=== PATIENT | female | born 1970 | race Caucasian/White ===

== ENCOUNTER 2025-04-23 13:32 | Observation (INO) | payer OTHER, SELFPAY ==
--- NOTE | ~2025-04-23 | XR_ITS ---
EXAMINATION: XR WRIST 3 OR MORE VIEWS LEFT HISTORY: swelling, cat bite COMPARISON: There are no prior studies available for comparison. FINDINGS: Four views of the left wrist including a scaphoid view are submitted. Osseous mineralization is normal. There is no fracture or dislocation. The joint spaces are preserved. There is diffuse soft tissue swelling. XR/XR wrist LT min 3V IMPRESSION: Diffuse soft tissue side. No osseous abnormality is identified. Electronically signed by: Oscar Rodríguez MD 04/23/2025 02:29 PM EDT
--- NOTE | 2025-04-23 14:02 | ED.GENADULT ---
HPI - General Adult General Chief complaint: Animal Bite Stated complaint: infection Time Seen by Provider: 04/23/25 14:51 Source: patient Mode of arrival: ambulatory Limitations: no limitations History of Present Illness ED Provider: Giselle Rodrigues PA-C HPI narrative: Patient is a 54 year old assigned female at with no reported medical history presenting to the emergency department today with right forearm and hand pain. Patient states that on 04/21/2025 she was bit by her daughters cat, went to the urgent care and started on antibiotics (Augmentin) which she has been taking and her swelling and pain has increased. Patient denies any dizziness, lightheadedness, abdominal pain, nausea, vomiting, fever, chills, blurry vision, double vision, loss of vision, chest pain, difficulty breathing, shortness of breath, back pain, night sweats, pain with urination, increased urinary frequency, increased urinary urgency, blood in her urine or stool, syncope or a near syncopal episode, recent trauma or falls, bowel incontinence, bladder incontinence, or any other complaints at this time. Relieving factors: none Exacerbating factors: none Associated symptoms: denies other symptoms Treatments prior to arrival: other (Augmentin - taking as directed) Related Data Home Medications ?Medication ?Instructions ?Recorded ?Confirmed amoxicillin 875 mg-potassium 1 tab PO BID 04/23/25 clavulanate 125 mg tablet fluconazole 150 mg tablet 150 mg PO Q3D 04/23/25 levothyroxine 100 mcg tablet 100 mcg PO DAILY@0600 04/23/25 (Synthroid) Allergies Allergy/AdvReac Type Severity Reaction Status Date / Time bupropion (From Wellbutrin) Allergy Intermediate Hives Verified 04/23/25 14:05 Review of Systems Constitutional: Constitutional: Reports no additional constitutional complaints, Denies chills, Denies fever(s) and Denies night sweats Eyes: Eyes: Reports no additional eye complaints, Denies blurry vision, Denies change in vision, Denies diplopia, Denies eye discharge, Denies loss of vision and Denies eye pain ENT: Denies dizziness Cardiovascular: Cardiovascular: Reports no additional cardiovascular complaints, Denies chest pain, Denies lightheadedness, Denies Loss of Consciousness and Denies dyspnea Respiratory: Respiratory: Reports no additional respiratory complaints and Denies dyspnea Gastrointestinal: Gastrointestinal: Reports no additional gastrointestinal complaints, Denies abdominal pain, Denies melena, Denies hematochezia, Denies change in bowel habits and Denies change in stool character Genitourinary: Genitourinary: Denies hematuria, Denies urinary frequency, Denies dysuria, Denies urinary incontinence, Denies urinary hesitancy and Denies urinary urgency Musculoskeletal: Musculoskeletal: Reports no additional musculoskeletal complaints, Denies numbness and Denies tingling Comments: right hand and forearm pain Neurologic: Denies dizziness, Denies loss of vision, Denies numbness and Denies tingling Psychiatric: Psychiatric: Reports no additional psychiatric complaints Endocrine: Endocrine: Reports no additional endocrine complaints Hematologic/Lymphatic: Hematologic/Lymphatic: Reports no additional hematologic/lymphatic complaints Allergic/Immunologic: Allergic/Immunologic: Reports no additional allergic/immunologic complaints PMFSH Past Medical History Attestation statement: The following information was validated with the patient. Source: old records reviewed and nursing notes reviewed Social History Social History Smoked in Last 30 Days: Yes Use of substances other than those prescribed or required for medical reasons: No Advance Directives: No Advance Directives Information Provided: Yes Do you have a plan to hurt others: No Plan Physical Exam ED Vital Signs: Vital Signs - 24 hr 04/23/25 14:03 Temperature 98.3 F Pulse Rate 69 Respiratory Rate 18 Blood Pressure 130/87 Pulse Oximetry 98 Oxygen Delivery Method Room Air BMI result Body Mass Index 21.1 Const General: cooperative, no acute distress, alert and awake Nutritional Appearance: well nourished Orientation/consciousness: patient oriented x3 HENMT Head: Yes normal to inspection and Yes atraumatic Ears: hearing grossly normal bilaterally and external ears normal General nose exam: Normal external nose present, no nasal discharge noted and no epistaxis Face and sinus: Yes normal facial exam, No abrasion and No laceration Mouth: Normal oral and palatal mucosa present, no drooling and no muffled voice Eyes General: appearance normal, both eyes and all related structures Periorbital: periorbital findings normal Eyelids: Yes eyelids normal Conjunctivae: conjunctivae normal Pupils: Equal, round and reactive pupils present EOM: EOMs intact bilaterally Neck Neck: Yes normal visual inspection, Yes full ROM and Yes no lymphadenopathy Resp Effort & Inspection: normal respiratory effort and able to speak in complete sentences Neuro General: patient oriented x3, moves all extremities and CN's II-XI intact bilaterally Cranial nerves: Yes Equal, round and reactive pupils present Cognition (Neuro): normal cognition Extrem Other: patient's ring has been removed s/p picture General: Yes full ROM and Yes capillary refill normal Psych Appearance: grossly normal Mental Status: mental status grossly normal Affect: normal affect Attitude: cooperative Thought process: Normal thought process present Thought content: Normal thought content present Insight: Good insight present (Psych) Course Course Course Narrative: This is an RME: Additional HPI, ROS, PE not included below will be deferred to primary provider. RME assessment and note performed by: Kristin Alonso PA-C This is a 54-oqpx-kch-female, with a hx of hypothyroidism, who presents to the ER with a complaint of left wrist swelling. Reports sunday night she was bit by her daughter's cat - seen at urgent care yesterday and was placed on augmentin. She has taken 3 doses of this and her wrist is more swollen, red. Plan: Labs, further ER eval needed Medications Administered Discontinued Medications Generic Name Dose Route Start Last Admin Trade Name Freq PRN Reason Stop Dose Admin Piperacillin Sod/Tazobactam 50 mls @ 100 mls/hr 04/23/25 15:23 04/23/25 16:36 Sod 3.375 gm/ Sodium Chloride IV 04/23/25 15:52 100 mls/hr ONCE ONE Administration Medical Decision Making Medical Decision Making MDM Narrative: Patient is a 54 year old assigned female at with no reported medical history presenting to the emergency department today with right forearm and hand pain. Patient's physical exam was as noted in the physical exam portion of this note. Patient's blood work was unremarkable. Patient's right wrist x-ray showed no acute process. I spoke to the orthopedic team who recommended admission with continued IV antibiotics. I spoke to the hospitalist team who agreed to admission. Patient's clinical presentation is most consistent with right wrist / hand / forearm cellulitis and not sepsis (@1630). I explained my physical exam findings as well as all test results to the patient. I answered all questions asked by the patient. Patient verbalized agreement and understanding with this treatment plan and admission. Differential Diagnosis Differential Diagnoses: The differential diagnosis associated with the presentation includes Cellulitis Cat bite Admission/Observation Consideration of admission/observation: Escalation of care including admission/observation considered Patient admitted as noted in the MDM Rationale portion of this note. Consult Healthcare Provider Management of the patient was discussed with: Hospitalist (agreed to admission as noted in the MDM Rationale portion of this note. ) and Fitter/Welder (spoke with the ortho team as noted in the MDM Rationale portion of this note. ) Lab Data [facility] Lab Attestation statement: I reviewed the patient's lab results. My interpretation of these results are in the MDM Rationale portion of this note. 04/23/25 14:48 04/23/25 14:48 Labs: Lab Results 04/23/25 Range/Units 14:48 WBC 8.2 (4.8-10.8) X10*3/uL RBC 4.58 (4.20-5.50) X10*6/uL Hgb 14.7 (12.0-16.0) g/dl Hct 43.2 (37.0-47.0) % MCV 94.3 (80.0-98.0) fL MCH 32.1 (27.0-33.0) pg MCHC 34.0 (31.0-35.0) g/dl RDW 13.2 (11.0-16.0) % Plt Count 313 (160-400) X10*3/uL MPV 9.2 L (9.4-12.3) fL Immature Gran % (Auto) 0.2 (0.0-0.4) % Neut % (Auto) 76.6 H (45-73) % Lymph % (Auto) 12.8 L (20-40) % [place] % (Auto) 7.3 (2-11) % Eos % (Auto) 2.2 (0-4) % Baso % (Auto) 0.9 (0-2) % Lymph # (Auto) 1.1 L (1.2-4.9) X10*3/uL [place] # (Auto) 0.6 (0.1-1.2) X10*3/uL Eos # (Auto) 0.2 (0.0-0.4) X10*3/uL Baso # (Auto) 0.1 (0.0-0.2) X10*3/uL Abs Immat Gran (auto) 0.02 (0.00-0.03) X10*3/uL Absolute Neuts (auto) 6.3 (2.0-8.3) x10*3/uL Absolute Nucleated RBC 0.000 (0.0-0.012) X10*3/uL Nucleated RBC % (auto) 0.0 (0.0-0.2) /100WBC Sodium 140 (135-145) mmol/L Potassium 3.9 (3.3-5.1) mmol/L Chloride 106 (96-108) mmol/L Carbon Dioxide 27 (22-29) mmol/L Anion Gap 11 L (12-20) BUN 19 H (9-16) mg/dL Creatinine 0.73 (0.5-1.4) mg/dL Estim Creat Clear Calc 77.4 Estimated GFR > 60 Random Glucose 96 (60-115) mg/dL Lactic Acid 0.9 (0.5-2.0) mmol/L Calcium 9.7 (8.4-10.2) mg/dL Total Bilirubin 0.5 (0.0-1.0) mg/dL Direct Bilirubin 0.2 (0.0-0.5) mg/dL AST 22 (5-31) U/L ALT 13 (0-31) U/L Alkaline Phosphatase 88 (39-117) U/L Total Protein 6.4 L (6.5-8.0) g/dL Albumin 4.1 (3.5-5.0) g/dL Independent Interpretation I performed an independent interpretation of an: Plain X-Ray Interpretation: My interpretation is in agreement with the radiologist's impression of this imaging study. EXAMINATION: XR WRIST 3 OR MORE VIEWS LEFT HISTORY: swelling, cat bite COMPARISON: There are no prior studies available for comparison. FINDINGS: Four views of the left wrist including a scaphoid view are submitted. Osseous mineralization is normal. There is no fracture or dislocation. The joint spaces are preserved. There is diffuse soft tissue swelling. XR/XR wrist LT min 3V IMPRESSION: Diffuse soft tissue side. No osseous abnormality is identified. Electronically signed by: Oscar Rodríguez MD 04/23/2025 02:29 PM EDT Dictated By: Oscar Rodríguez MD Signed By: Electronically signed by Oscar Rodríguez MD 04/23/25 1429 Radiology Impression Discussion of test interpretation with radiology: I have reviewed the radiologist's reading. Critical Care Time Critical Care Time Critical Care Time: Yes Total Critical Care Time: 38 Attestation: I spent 38 minutes of Critical Care Time with this patient. This does not include time spent on separately reported billable procedures. Discharge Plan Discharge Clinical Impression: Cat bite, Acute cellulitis Patient Disposition: Admitted As Inpatient
[2025-04-23 14:03] VITALS: BP 130/87; PULSE 69; RESP 18; TEMP 36.8; O2SAT 98; BMI 21.1
[2025-04-23 14:59] LABS: MANUAL DIFF FLAG NO
--- OUTSIDE RECORDS SUMMARY | 2025-04-23 15:01 | XMS_ITS | Encounter Summary ---
Author Organization Formerly [facility] Address [address] [place] [address] [place] [phone] Phone Care Team Providers Care Port Drier Name Role Phone ArjunJosé Luis vu Primary Care Provider + Encounter Details Date Type Department Care Team (Late st Contact Info) Description 04/24/2016 Ancillary Orders Hakeem Coates [employer] [address] [facility], [address] [place] [address] Shahana Noonan MD [address] [place] [address] [email or web address] Screening (Primary Dx) Social History Tobacco Use Types Packs/Day Years Used Date Smoking Tobacco: Never Comments:Smoking History Pac ks/day: <=0.5 Comments Unknown Sex and Gender Information Value Date Recorded Sex Assigned at Not on file Legal Sex Female 5:49 PM EST Gender Identity Not on file Sexual Orientation Not on file documented as of this encounter Plan of Treatment Not on file documented as of this encounter Results * BI MAMMOGRAM SCREENING WITH TOMOSYNTHESIS WITH CAD (BILATERAL) (05/11/2016 10:57 AM EDT) Anatomical Region Laterality Modality Breast Left, Breast Right, Breast Bilateral Bila teral Mammography Impressions 05/12/2016 7:49 AM EDT IMPRESSION: No mammographic evidence for malignancy. The patient will receive her results by telephone and/or USPS. Result Code: BI-RADS 2 Benign Findings. Recommendations: Mammography Screening Recommendation Due Date: 12 Months Narrative 05/12/2016 7:49 AM EDT HISTORY: The patient presents for annual mammography. FINDINGS: Comparison is made with previous examinations spanning 01/16/2008-06/05/2013. The examination is performed with digital mammography and computer aided detection. 2-D and 3-D images (tomosynthesis) of both breasts were obtained in the CC and MLO positions. The breast tissue is heterogeneously dense, an appearance which lowers the sensitivity of mammography. There are no suspicious masses, suspicious calcifications, areas of suspicious distortion or other signs of malignancy detected. No significant changes are identified. Benign-appearing calcifications are noted in both breasts with no significant changes detected. Shahana Noonan MD IMG MG EXAMS Final Result documented in this encounter Visit Diagnoses Diagnosis Screening- Primary Screening for unspecified condition Screening Screening for unspecified condition documented in this encounter Care Teams Port Drier Relationship Specialty Start Date End Date José Luis Hinds DO [address] [place] [id number] PCP - General 02/04/15 documented as of this encounter Additional Source Comments The information contained in this document represents components of the legal health record. It is not the complete legal health record.[facility]
[2025-04-23 15:04] LABS: Hematocrit 43.2 % (37.0-47.0); Hemoglobin 14.7 g/dl (12.0-16.0); Imm Gran Abs Auto 0.02 X10*3/uL (0.00-0.03); Imm Gran Pct Auto 0.2 % (0.0-0.4); Lymphocytes Absolute Auto 1.1 X10*3/uL (1.2-4.9); Mean Corpuscular HGB Conc 34.0 g/dl (31.0-35.0); Mean Corpuscular Hemoglobin 32.1 pg (27.0-33.0); Mean Corpuscular Volume 94.3 fL (80.0-98.0); NRBC Abs Auto 0.000 X10*3/uL (0.0-0.012); NRBC Pct Auto 0.0 /100WBC (0.0-0.2); Platelet Count 313 X10*3/uL (160-400); Red Blood Count 4.58 X10*6/uL (4.20-5.50); White Blood Count 8.2 X10*3/uL (4.8-10.8)
--- NOTE | 2025-04-23 15:08 | PC.NURSE ---
This is a 53-dcvz-his-female, with a hx of hypothyroidism, who presents to the ER with a complaint of left wrist swelling. Reports sunday night she was bit by her daughter's cat - seen at urgent care yesterday and was placed on augmentin. She has taken 3 doses of this and her wrist is more swollen, red. Patient alert and oriented. Lungs clear bilat. Respirations even and non-labored. Abdomen flat, soft, non-tender with positive bowel sounds. Left forearm red and swollen, a good pulse and csm. Positive pedal pulses with no edema.
[2025-04-23 15:20] LABS: Alanine Aminotransferase 13 U/L (0-31); Albumin Level 4.1 g/dL (3.5-5.0); Alkaline Phosphatase 88 U/L (39-117); Anion Gap 11 (12-20); Aspartate Amino Transferase 22 U/L (5-31); Blood Urea Nitrogen 19 mg/dL (9-16); Calcium 9.7 mg/dL (8.4-10.2); Carbon Dioxide 27 mmol/L (22-29); Chloride 106 mmol/L (96-108); Creatinine Clr Calc Pharmacy 77.4; Estimated Glomerular Filt Rate > 60; Potassium 3.9 mmol/L (3.3-5.1); Sodium 140 mmol/L (135-145); Total Protein 6.4 g/dL (6.5-8.0)
--- NOTE | 2025-04-23 16:07 | PM.IMHP ---
History of Present Illness Date of Service: 04/23/25 Attending physician on admission: [facility] Chief Complaint: sandra bite /cellulitis 54 y/o f no reported medical history presenting to the emergency department today with right forearm and hand pain. Patient states that on 04/21/2025 she was bit by her daughters cat, went to the urgent care and started on antibiotics (Augmentin) which she has been taking and her swelling and pain has increased. Denies any new complaint of chest pain or shortness of breath or abdominal pain or fever or chills or nausea or vomiting or cough or weakness or numbness. Lab reviewed: CBC BMP seems fine, wrist x-ray shows diffuse soft tissue side. Patient received IV antibiotics in emergency room and admission was requested for IV antibiotics, also seen by ortho for possible need of I and D if patient does not improve. Review of Systems Review of Systems: As above. Yes all other systems are reviewed and are negative PMFSH Social History Smoked in Last 30 Days: Yes Use of substances other than those prescribed or required for medical reasons: No Advance Directives: No Advance Directives Information Provided: Yes Do you have a plan to hurt others: No Plan Meds Allergies Allergy/AdvReac Type Severity Reaction Status Date / Time bupropion (From Wellbutrin) Allergy Intermediate Hives Verified 04/23/25 14:05 Active Medications: Current Medications Acetaminophen (Acetaminophen 325 Mg Tablet) 650 mg PO Q6H PRN PRN Reason: Pain, Mild 1-3,fever,headache Calcium Carbonate (Calcium Carbonate 750 Mg Tab.Chew) 750 mg PO Q4H PRN PRN Reason: Heartburn Vancomycin HCl 1,500 mg/ (Sodium Chloride) 500 mls @ 333.333 mls/hr IV ONCE ONE Stop: 04/23/25 17:29 Magnesium Hydroxide (Milk Of Magnesia 30 Ml Oral.Susp) 30 ml PO DAILY PRN PRN Reason: Constipation Melatonin (Melatonin 3 Mg Tablet) 6 mg PO BEDTIME PRN PRN Reason: Insomnia Sodium Chloride (0.9 % Sodium Chloride Flush 3 Ml Syringe) 3 ml IVFLUSH QSHIFT [facility] Home Medications ?Medication ?Instructions ?Recorded ?Confirmed ?Last Taken ?Type amoxicillin 875 mg-potassium 1 tab PO BID 04/23/25 04/23/25 04/23/25 History clavulanate 125 mg tablet dextroamphetamine-amphetamine 20 20 mg PO DAILY@1400 PRN attention 04/23/25 04/23/25 Unknown History mg tablet dextroamphetamine-amphetamine ER 30 mg PO DAILY 04/23/25 04/23/25 04/21/25 History 30 mg 24hr capsule,extend release levothyroxine 100 mcg tablet 100 mcg PO DAILY@0600 04/23/25 04/23/25 04/21/25 History (Synthroid) multivitamin 1 tab PO DAILY 04/23/25 04/23/25 04/21/25 History Physical Exam Vital Signs and Narrative: Vital Signs: Last Vital Signs Temp 98.3 F 04/23/25 14:03 Pulse 69 04/23/25 14:03 Resp 18 04/23/25 14:03 BP 130/87 04/23/25 14:03 Pulse Ox 98 04/23/25 14:03 O2 Del Method Room Air 04/23/25 14:03 BMI result Body Mass Index 21.1 Appearance: Alert.? Oriented X3. Eyes: Pupils equal, round and reactive to light.? Sclera nonicteric.? ENT: Pharynx normal.? Moist mucous membranes. cvs: rrr, [id number]. res: clear to auscultation ,no rhonchii or wheezing abd: no rebound or guarding ,nt, bs present. ext pulses present , no cyanosis . has bite angela on forearm-please see h&P . neuro: axo3 , nonfocal. Results Labs 04/24/25 05:50 04/24/25 05:50 Labs: Laboratory Results - last 24 hr 04/23/25 14:48 MCV 94.3 MCH 32.1 MCHC 34.0 RDW 13.2 Plt Count 313 MPV 9.2 L Immature Gran % (Auto) 0.2 Neut % (Auto) 76.6 H Lymph % (Auto) 12.8 L [place] % (Auto) 7.3 Eos % (Auto) 2.2 Baso % (Auto) 0.9 Lymph # (Auto) 1.1 L [place] # (Auto) 0.6 Eos # (Auto) 0.2 Baso # (Auto) 0.1 Abs Immat Gran (auto) 0.02 Absolute Neuts (auto) 6.3 Absolute Nucleated RBC 0.000 Nucleated RBC % (auto) 0.0 Anion Gap 11 L Estim Creat Clear Calc 77.4 Estimated GFR > 60 Random Glucose 96 Lactic Acid 0.9 Calcium 9.7 Total Bilirubin 0.5 Direct Bilirubin 0.2 AST 22 ALT 13 Alkaline Phosphatase 88 Total Protein 6.4 L Albumin 4.1 Imaging Radiologist's Impressions: Impressions Wrist X-Ray 04/23/25 13:23 IMPRESSION: Diffuse soft tissue side. No osseous abnormality is identified. Assessment and Plan (1) Acute cellulitis: Status: Acute Plan 54 y/o f no reported medical history presenting to the emergency department today with right forearm and hand pain. Patient states that on 04/21/2025 she was bit by her daughters cat, went to the urgent care and started on antibiotics (Augmentin) which she has been taking and her swelling and pain has increased. Right arm cellulitis : After biting from the cat As per the ED physician patient is immunization up to date. No leukocytosis or fever . xray arm:Diffuse soft tissue side. No osseous abnormality is identified. Started on IV antibiotics, ortho consult Patient also requested ibuprofen for pain, as well as fluconazole because she gets yeast infection with antibiotics as per with the patient. DVT prophylaxis: Low risk, Ambulation. Patient will benefit from at least 2 midnight stay-right arm cellulitis: continue IV antibiotics, need of ortho input-possible need i&D. `` Quality Stroke Does the patient have a stroke diagnosis?: No VTE Prior VTE?: No VTE Risk Level:: Medical - moderate - high VTE Device Contraindication: N/A - Device Ordered VTE Drug Contraindication: N/A - Med Ordered
--- NOTE | 2025-04-23 16:15 | PM.CNOR ---
History of Present Illness [facility] Consult date: 04/23/25 Chief complaint: Cellulitis Narrative: Patient is a 54-year-old female who presents to the hospital for worsening redness and swelling after a cat bite of the right forearm Patient was bit by her daughter's cat on 04/21/2025 Patient was placed on Augmentin at that time, however redness and swelling have worsened Patient reports some minor discharge from 2 of the 4 puncture sites Patient states that pain is worst in the 2 most ulnar puncture sites There is some surrounding edema and erythema Review of Systems Review of Systems: Yes all other systems are reviewed and are negative [facility] Social History Social History Smoked in Last 30 Days: Yes Use of substances other than those prescribed or required for medical reasons: No Advance Directives: No Advance Directives Information Provided: Yes Do you have a plan to hurt others: No Plan Meds Allergies Allergy/AdvReac Type Severity Reaction Status Date / Time bupropion (From Wellbutrin) Allergy Intermediate Hives Verified 04/23/25 14:05 Active Medications: Current Medications Acetaminophen (Acetaminophen 325 Mg Tablet) 650 mg PO Q6H PRN PRN Reason: Pain, Mild 1-3,fever,headache Calcium Carbonate (Calcium Carbonate 750 Mg Tab.Chew) 750 mg PO Q4H PRN PRN Reason: Heartburn Vancomycin HCl 1,500 mg/ (Sodium Chloride) 500 mls @ 333.333 mls/hr IV ONCE ONE Stop: 04/23/25 17:29 Magnesium Hydroxide (Milk Of Magnesia 30 Ml Oral.Susp) 30 ml PO DAILY PRN PRN Reason: Constipation Melatonin (Melatonin 3 Mg Tablet) 6 mg PO BEDTIME PRN PRN Reason: Insomnia Sodium Chloride (0.9 % Sodium Chloride Flush 3 Ml Syringe) [facility] Medications ?Medication ?Instructions ?Recorded ?Confirmed ?Last Taken ?Type amoxicillin 875 mg-potassium 1 tab PO BID 04/23/25 Unknown History clavulanate 125 mg tablet fluconazole 150 mg tablet 150 mg PO Q3D 04/23/25 Unknown History levothyroxine 100 mcg tablet 100 mcg PO DAILY@0600 04/23/25 Unknown History (Synthroid) Physical Exam Vital Signs: Vital Signs: Last Vital Signs Temp 98.3 F 04/23/25 14:03 Pulse 69 04/23/25 14:03 Resp 18 04/23/25 14:03 BP 130/87 04/23/25 14:03 Pulse Ox 98 04/23/25 14:03 O2 Del Method Room Air 04/23/25 14:03 BMI result Body Mass Index 21.1 Extrem: Other: Patient is alert, oriented, and in no acute distress. Neuro: Normal sensation of the tips of all digits of the right hand at this time Vascular: Cap refill brisk Pain: Significant tenderness to palpation of the 2 most ulnar puncture sites Less pain with palpation of to radial puncture sites Minimal discomfort with range of motion of the right hand and wrist ROM: Patient is able to make a closed fist and extend all digits of the right hand fully Skin: For small puncture sites noted on the right forearm, 2 radial and to ulnar Scant purulent drainage noted from 2 most ulnar puncture sites No fluctuance or other evidence of acute abscess formation Psych: Appears grossly normal Affect normal Attitude cooperative Results Labs 04/23/25 14:48 04/23/25 14:48 Labs: Abnormal lab results 04/23/25 Range/Units 14:48 MPV 9.2 L (9.4-12.3) fL Neut % (Auto) 76.6 H (45-73) % Lymph % (Auto) 12.8 L (20-40) % Lymph # (Auto) 1.1 L (1.2-4.9) X10*3/uL Anion Gap 11 L (12-20) BUN 19 H (9-16) mg/dL Total Protein 6.4 L (6.5-8.0) g/dL H & H 04/23/25 Range/Units 14:48 Hgb 14.7 (12.0-16.0) g/dl Hct 43.2 (37.0-47.0) % All other labs normal. Assessment and Plan (1) Acute cellulitis: Status: Acute (2) Cat bite of right forearm: Status: Acute Plan 1. Cellulitis status post cat bite Date of injury 04/21/2025 Patient is seen and evaluated with Dr. Garcia, and a collaborative treatment plan was formed: At this time, after evaluation with Dr. Garcia, no acute surgical intervention is indicated Scant drainage is thought to have been purely at the wound site, there is no evidence of deeper abscess formation Recommend admission to Medicine for IV antibiotics to treat cellulitis, ensuring coverage for pasteurella in the setting of the cat bite We will re-evaluate the patient tomorrow and determine if sufficient improvement has been made to rule out deeper abscess, or if any further treatment is indicated Patient is amenable to this plan Procedures Date of Service Date of Service: 04/23/25
[2025-04-23 16:33] VITALS: BP 127/85; PULSE 83; RESP 18; TEMP 36.9; O2SAT 96
--- NOTE | 2025-04-23 16:54 | PC.NURSE ---
Patient is a 54 year old assigned female at with no reported medical history presenting to the emergency department today with right forearm and hand pain. Patient states that on 04/21/2025 she was bit by her daughters cat, went to the urgent care and started on antibiotics (Augmentin) which she has been taking and her swelling and pain has increased. Patient being admitted with cellulitis secondary to a cat bite. Alert and oriented. Lungs clear bilat. Respirations even and non-labored. Abdomen flat, soft, non-tender with positive bowel sounds. Left forearm red, hot and swollen. Positive pedal pulses with no edema noted. Abx therapy initiated
--- NOTE | 2025-04-23 18:08 | PHA.MEDREC ---
Addendum entered by Desi Carreno RPh 04/23/25 18:43: MED REC REVIEWED BY [facility] Original Note: Pharmacy Consult ? Medication Reconciliation Pharmacy has completed the medication reconciliation. Spoke with pt and she confirmed her medications. Per pt she take, Adderall ER 30mg daily in the morning and Adderall 20mg daily @1400 as needed. Pt confirmed she started the amoxicillin-pot clavulanate yesterday and took one this morning; pt states she did not sweet pickle maker the Fluconazole. Pt states she takes a Vitamin B-12, Vitamin D3 and Magnesium Gluconate tables QD but doesn't remember the dose of them at this time. Pt states she has not taken any of her medications (except for the amoxicillin-pot clavulanate) since Sunday.
[2025-04-23 18:18] VITALS: BP 141/74; PULSE 84; RESP 18; TEMP 36.8; O2SAT 99
[2025-04-23 20:00] VITALS: BP 128/77; PULSE 82; RESP 16; TEMP 37.1; O2SAT 97
[2025-04-24] MEDS: 0.9 % Sodium Chloride Flush 3 ML SYRINGE IVFLUSH ×2 (00:30→08:24)
[2025-04-24 05:58] LABS: Hematocrit 41.1 % (37.0-47.0); Hemoglobin 13.7 g/dl (12.0-16.0); Mean Corpuscular HGB Conc 33.3 g/dl (31.0-35.0); Mean Corpuscular Hemoglobin 31.6 pg (27.0-33.0); Mean Corpuscular Volume 94.7 fL (80.0-98.0); NRBC Abs Auto 0.000 X10*3/uL (0.0-0.012); NRBC Pct Auto 0.0 /100WBC (0.0-0.2); Platelet Count 291 X10*3/uL (160-400); Red Blood Count 4.34 X10*6/uL (4.20-5.50); White Blood Count 6.7 X10*3/uL (4.8-10.8)
[2025-04-24 06:00] VITALS: BP 126/78; PULSE 84; RESP 18; TEMP 36.4; O2SAT 96
[2025-04-24 06:11] LABS: Anion Gap 10 (12-20); Blood Urea Nitrogen 16 mg/dL (9-16); Calcium 8.9 mg/dL (8.4-10.2); Carbon Dioxide 25 mmol/L (22-29); Chloride 111 mmol/L (96-108); Creatinine Clr Calc Pharmacy 80.8; Estimated Glomerular Filt Rate > 60; Potassium 4.2 mmol/L (3.3-5.1); Sodium 142 mmol/L (135-145)
[2025-04-24 08:00] VITALS: BP 131/75; PULSE 74; RESP 16; TEMP 36; O2SAT 96
--- NOTE | 2025-04-24 08:25 | PM.PNORT ---
Subjective Subjective Date of Service: 04/24/25 Interval history: 54-year-old female admitted to the hospital after cat bite for cellulitis Patient reports that her pain has improved significantly overnight Reports there has been significant bloody drainage from 1 of the puncture sites, however denies any further purulence Reports that swelling and redness about these puncture sites have also improved significantly overnight No other acute complaints or concerns at this time Physical Exam Vital Signs: Vital Signs: Last Vital Signs Temp 97.6 F 04/24/25 06:00 Pulse 84 04/24/25 06:00 Resp 18 04/24/25 06:00 BP 126/78 04/24/25 06:00 Pulse Ox 96 04/24/25 06:00 O2 Del Method Room Air 04/24/25 06:00 BMI result Body Mass Index 21.1 Extrem: Other: Patient is alert, oriented, and in no acute distress. Neuro: Normal sensation of the tips of all digits of the left hand at this time Vascular: Cap refill brisk Pain: Minimal remaining tenderness to palpation of the forearm No further discomfort with range of motion of the left hand and wrist ROM: Patient is able to make a closed fist and extend all digits of the right hand fully Skin: For small puncture sites noted on the left forearm, 2 radial and to ulnar A large scab has formed on the proximal ulnar puncture site, No further active drainage No fluctuance or other evidence of acute abscess formation Psych: Appears grossly normal Affect normal Attitude cooperative Procedures Date of Service Date of Service: 04/24/25 Progress Note: A&P Assessment and plan (1) Acute cellulitis: Status: Acute (2) Cat bite: Status: Acute Plan Continue pain management No need for surgical intervention at this time At this point, I feel it is possible to discharge the patient today on p.o. antibiotics if she is cleared medically Would recommend different antibiotic than Augmentin, as this was ineffective previously We will need coverage for pasteurella due to the inciting event the cat bite Should return to the hospital for worsening symptoms/evidence of developing abscess Time Spent With Patient Time: Total time managing care of this patient today ____ minutes. Quality Stroke Does the patient have a stroke diagnosis?: No VTE Prior VTE?: No VTE Risk Level:: Medical - moderate - high VTE Device Contraindication: N/A - Device Ordered VTE Drug Contraindication: N/A - Med Ordered
--- NOTE | 2025-04-24 08:26 | PC.NURSE ---
Pt A&O X4 VSS Pt in NAD, pt anxious to be DC'd keri. States provider is aware. left arm edema decreased from reported. area warm to touch. Bite wounds scabbed not draining.
--- OUTSIDE RECORDS SUMMARY | 2025-04-24 10:35 | XMS_ITS | Encounter Summary ---
Author Organization [facility] Address [address] [place] [address] [place] [id number] Phone Care Team Providers Care Floral Arranger Name Role Phone ArjunJosé Luis vu Primary Care Provider + Encounter Details Date Type Department Care Team (Late st Contact Info) Description 04/24/2016 Ancillary Orders Hakeem Coates [facility] [address] [facility], [address] [place] [address] Shahana Noonan MD [address] [place] [address] [email or web address] Screening (Primary Dx) Social History Tobacco Use [...] condition documented in this encounter Care Teams Floral Arranger Relationship Specialty Start Date End Date José Luis Hinds DO [address] [place] [phone] PCP - General 02/04/15 documented as of this encounter Additional Source Comments The information contained in this document represents components of the legal health record. It is not the complete legal health record.[facility]
--- NOTE | 2025-04-24 10:59 | P.DS_ITS ---
DS: Providers Provider Date of Service: 04/24/25 Date of admission: 04/23/25 16:04 Date of discharge: 04/24/25 Primary care physician: None Physician Consults: 04/23/25 15:24 Consult to Orthopedics Stat Consulting Provider: [facility] Reason for consultation: cat bite Has provider been notified: Yes 04/23/25 18:30 Consult to Orthopedics Routine Consulting Provider: [facility] Reason for consultation: right arm cellulitis Has provider been notified: No Attending physician on discharge: [facility] Discharging clinician: [facility] DS: Diagnosis Discharge Diagnosis (1) Acute cellulitis: Status: Acute (2) Cat bite: Status: Acute DS: Summary Hospital Course Hospital Course: HPI:54 y/o f no reported medical history presenting to the emergency department today with right forearm and hand pain. Patient states that on 04/21/2025 she was bit by her daughters cat, went to the urgent care and started on antibiotics (Augmentin) which she has been taking and her swelling and pain has increased. Denies any new complaint of chest pain or shortness of breath or abdominal pain or fever or chills or nausea or vomiting or cough or weakness or numbness. Lab reviewed: CBC BMP seems fine, wrist x-ray shows diffuse soft tissue side. Patient received IV antibiotics in emergency room and admission was requested for IV antibiotics, also seen by ortho for possible need of I and D if patient does not improve. Hospital course: Right arm cellulitis after cat bite: Patient was seen by surgery,xray arm:Diffuse soft tissue side. No osseous abnormality is identified: Started on IV antibiotics, patient does not have any white count or fever , bite area self draining. Seen by surgery: Recommended no acute surgical intervention at present. Recommended p.o. antibiotic upon discharge. Complete Augmentin 875 mg p.o. b.i.d. for 10 days. Patient seems much better, range of motion of hand and arm intact, pain also improved significantly. No leukocytosis or fever.blood cultures negative @24hrs. Should return to the hospital for worsening symptoms/evidence of developing abscess Follow up with surgery outpatient. plan: Complete Augmentin 875 mg p.o. b.i.d. for 10 days. Should return to the hospital for worsening symptoms/evidence of developing abscess Follow up with surgery outpatient. Time Attestation Total time managing care of this patient today: 40 mintues. Discharge Coordination Time (in mins): 40 min Quality: Safe Use of Opioids Does Pt have an Active Cancer Diagnosis on the Problem List?: No Quality: Stroke Does the patient have a stroke diagnosis?: No Physical Exam Exam: Exam: Appearance: Alert.? Oriented X3. cvs: rrr, [id number]. res: clear to auscultation ,no rhonchii or wheezing abd: no rebound or guarding ,nt, bs present. ext pulses present , no cyanosis . has bite angela on forearm-please see h&P . neuro: axo3 , nonfocal. Vital Signs: Vital Signs: Last Vital Signs Temp 96.8 F 04/24/25 08:00 Pulse 74 04/24/25 08:00 Resp 16 04/24/25 08:00 BP 131/75 04/24/25 08:00 Pulse Ox 96 04/24/25 08:00 O2 Del Method Room Air 04/24/25 08:00 BMI result Body Mass Index 21.1 DS: Data Data Completed and Pending Labs on day of discharge: Laboratory Results - last 24 hr 04/23/25 04/24/25 14:48 05:50 WBC 8.2 6.7 RBC 4.58 4.34 Hgb 14.7 13.7 Hct 43.2 41.1 MCV 94.3 94.7 MCH 32.1 31.6 MCHC 34.0 33.3 RDW 13.2 13.0 Plt Count 313 291 MPV 9.2 L 9.1 L Immature Gran % (Auto) 0.2 Neut % (Auto) 76.6 H Lymph % (Auto) 12.8 L [place] % (Auto) 7.3 Eos % (Auto) 2.2 Baso % (Auto) 0.9 Lymph # (Auto) 1.1 L [place] # (Auto) 0.6 Eos # (Auto) 0.2 Baso # (Auto) 0.1 Abs Immat Gran (auto) 0.02 Absolute Neuts (auto) 6.3 Absolute Nucleated RBC 0.000 0.000 Nucleated RBC % (auto) 0.0 0.0 Sodium 140 142 Potassium 3.9 4.2 Chloride 106 111 H Carbon Dioxide 27 25 Anion Gap 11 L 10 L BUN 19 H 16 Creatinine 0.73 0.70 Estim Creat Clear Calc 77.4 80.8 Estimated GFR > 60 > 60 Random Glucose 96 94 Lactic Acid 0.9 Calcium 9.7 8.9 D Total Bilirubin 0.5 Direct Bilirubin 0.2 AST 22 ALT 13 Alkaline Phosphatase 88 Total Protein 6.4 L Albumin 4.1 Imaging Chest x-ray: Radiologist's impression: ITS Impressions Wrist X-Ray 04/23/25 13:23 IMPRESSION: Diffuse soft tissue side. No osseous abnormality is identified. Discharge Plan Discharge Anticipated Discharge Date/Time: 04/24/25 10:52 Patient Disposition: Home, Self-Care Discharge Diagnosis: Right arm cellulitis : After biting from the cat Referrals: Karl Hancock PA [Physician Business Continuity Management Director, Hand Surgery] - 1 Week Referral Note: 04/27/25 11:30 [facility] Karl Hancock PA Physician,None [Primary Care Provider, Medical] - 1 Week Discharge Medications: Continued levothyroxine [Synthroid] 100 mcg tablet 100 mcg PO DAILY@0600 dextroamphetamine-amphetamine 20 mg tablet 20 mg PO DAILY@1400 PRN (Reason: attention) dextroamphetamine-amphetamine 30 mg capsule,extended release 24hr 30 mg PO DAILY multivitamin Tablet 1 tab PO DAILY amoxicillin-pot clavulanate 875-125 mg tablet 1 tab PO BID Qty: 19 0RF Discharge Orders: Discharge Order (Routine); Ordered 04/24/25 Ordered By: [facility] Diet: Advance to usual diet Activity on Discharge: As tolerated Stand Alone Forms: Patient Portal Discharge page Print Language: Arabic Care Plan Goals: Right arm cellulitis after cat bite: Patient was seen by surgery,xray arm:Diffuse soft tissue side. No osseous abnormality is identified: Started on IV antibiotics, patient does not have any white count or fever , bite area self draining. Seen by surgery: Recommended no acute surgical intervention at present. Recommended p.o. antibiotic upon discharge. Complete Augmentin 875 mg p.o. b.i.d. for 10 days. Should return to the hospital for worsening symptoms/evidence of developing abscess Follow up with surgery outpatient. Health Concerns: As above. Plan of Treatment: As above. Assessment: As above. Discharge Date/Time: 04/24/25 14:01
--- NOTE | 2025-04-24 12:45 | MHC.CM.PN ---
Addendum entered by Sharri Ram 04/24/25 13:11: VALDEZ given 04/24. 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 Pt declined to complete a HCP today. Pt will arrange her own transport home at discharge. Planning to discharge home self-care today. PCP: Dr. Libby Turpin
[2025-04-24 13:55] VITALS: BP 119/85; PULSE 78; RESP 16; TEMP 36.9; O2SAT 96
--- NOTE | 2025-04-24 13:59 | PC.NURSE ---
Pt A&O X4 VSS NAD NO complaints, verbalizes understanding of Discharge instructions. No questions. Bite wound remains as previously documented. No redness and only slight edema to arm. Pt states minimal pain thru shift. Moves hand and wrist well without difficulty.
== END 2025-04-24 14:01 | disposition home or self-care (01) ==
LOC: HO.ED 14:56 → HO.EDOVER 16:57 → HO.S3 04-24 07:49 → HO.EDOVER 04-24 10:20
PROVIDERS: Physician Assistant Medical; Admitting Provider Internal Medicine; Emergency Provider Emergency Medicine; Visit Provider Internal Medicine
DX: S51.851A Open bite of right forearm, initial encounter (principal); L03.113 Cellulitis of right upper limb; W55.01XA Bitten by cat, initial encounter; Y93.9 Activity, unspecified; Y92.9 Unspecified place or not applicable; Y99.9 Unspecified external cause status; M79.641 Pain in right hand; E03.9 Hypothyroidism, unspecified; Z79.899 Other long term (current) drug therapy
CPT/HCPCS: 36415; 73110; 80048; 80076; 83605; 85025; 85027; 87040; 96365; 96366; 96367; 99221; 99285; J2543; J3374

== ENCOUNTER → 2025-04-23 14:10 | Outpatient (BNV) | payer OTHER, SELFPAY | PROVIDERS: Visit Provider Radiology Diagnostic Radiology | DX: R22.32 Localized swelling, mass and lump, left upper limb (principal); W55.01XA Bitten by cat, initial encounter | CPT/HCPCS: 73110 ==

== ENCOUNTER → 2025-04-23 16:04 | Outpatient (BNV) | payer OTHER, SELFPAY | PROVIDERS: Admitting Provider Internal Medicine | DX: L03.90 Cellulitis, unspecified (principal); W55.01XA Bitten by cat, initial encounter | CPT/HCPCS: 99232 ==

== ENCOUNTER → 2025-04-23 16:04 | Outpatient (BNV) | payer OTHER, SELFPAY | PROVIDERS: Admitting Provider Internal Medicine; Emergency Provider Emergency Medicine; Visit Provider Internal Medicine | DX: L03.113 Cellulitis of right upper limb (principal) | CPT/HCPCS: 99222; 99239 ==